=== PATIENT | female | born 1935 | race Two or more races ===

== ENCOUNTER 2019-02-02 20:32 | Emergency (ER) | payer OTHER ==
[~2019-02-02] VITALS: Ht 152.4 cm; Wt 54.4 kg
[~2019-02-02 20:32] MED LIST: BUTA-187; FENO5TAB; HYDR25TA4; HYDR500T13; LEVO50TA7; LEVO75TA6; METO1TAB9; NAPR500T31; RABE20TA5; SIMV-8; TOPI25TA84; [UNRECOGNIZED DRUG - REMARK]
[2019-02-03] MEDS ORDERED: ONDANSETRON HCL 4 MG/2 ML VIAL IV ONE
[2019-02-03] MEDS ORDERED: MORPHINE SULFATE 4 MG/ML SYR/VIAL IV ONE
[2019-02-03 06:03] LABS: Urine Bacteria NONE SEEN /hpf (None Seen); Urine Blood Negative /uL (Negative); Urine Mucus FEW (None Seen); Urine Specific Gravity 1.029 (1.001-1.035); Urine WBC 5 /hpf (0 - 5)
[2019-02-03 06:24] VITALS: BP 141/75
== END 2019-02-03 06:45 | disposition home or self-care (01) ==
LOC: ER 20:35
DX: M54.5 Low back pain (principal); G89.29 Other chronic pain; N39.0 Urinary tract infection, site not specified; E78.5 Hyperlipidemia, unspecified; I10 Essential (primary) hypertension; E07.9 Disorder of thyroid, unspecified; Z79.899 Other long term (current) drug therapy
CPT/HCPCS: 72131; 81001; 96374; 96375; 99284; J2270; J2405

== ENCOUNTER 2022-05-04 21:16 | Emergency (ER) | payer OTHER ==
[~2022-05-04] VITALS: Ht 162.6 cm; Wt 54.4 kg
[~2022-05-04 21:16] MED LIST changes: +RABE20TA19; -RABE20TA5
[2022-05-04] MEDS ORDERED: BACITRACIN INJ 50000 UNIT VIAL TOP ONE (23:00)
[2022-05-04] MEDS ORDERED: BACITRACIN TOP OINT 1 UD PKG TOP ONE ×2 (23:00→23:15)
[2022-05-05 02:06] VITALS: BP 144/78
== END 2022-05-05 02:13 | disposition home or self-care (01) ==
LOC: EDBD 21:16 → ER 21:17
DX: S00.01XA Abrasion of scalp, initial encounter (principal); I10 Essential (primary) hypertension; E78.5 Hyperlipidemia, unspecified; Z79.899 Other long term (current) drug therapy; Z88.8 Allergy status to other drugs, medicaments and biological substances; Y30.XXXA Falling, jumping or pushed from a high place, undetermined intent, initial encounter; Y93.89 Activity, other specified; Y92.098 Other place in other non-institutional residence as the place of occurrence of the external cause; Y99.8 Other external cause status
CPT/HCPCS: 70450; 71250; 72125; 74176

== ENCOUNTER 2024-10-27 16:29 | Emergency (ER) | payer OTHER ==
[~2024-10-27] VITALS: Ht 165.1 cm; Wt 50.0 kg
[~2024-10-27 16:29] MED LIST changes: +NAPR-746; -NAPR500T31; -SIMV-8; +SIMV20TA20
--- NOTE | 2024-10-27 16:44 | ED.PDOC ---
HPI Allergic reaction HPI Comments 89-year-old female brought in by EMS presents with a chief complaint of hives and itching. Patient has been having these symptoms since last night around 17:00. Patient said that it began after her dinner. Denies eating anything new or having new products, clothes, detergents, fragrances, or lotions. Patient states that the itchiness is all over her body. Patient states she has a history of itchy rash concerns. Patient states her primary care provider has not send her to a diamond die maker. Patient denies any airway involvement. Vital signs were stable on arrival. Patient states she took three Benadryl tablets at home. EMS stated they gave one Benadryl tablet in route. Chief Complaint: Rash Time Seen by MD: 16:34 Reviewed Notes: Nurses Notes, Training Developer Notes, Medications, Allergies Allergies: Coded Allergies: Iodine (Verified Allergy, Unknown, 05/04/22) Shellfish Allergy (Verified Allergy, Unknown, 10/27/24) Home Meds Reported Medications [[id number] Mg] (Simvastatin) 20 MG TAB No Conflict Check, MG 04/03/12 [Ntejjlqgqkvwabi29 Mg] (Hydrochlorothiazide) 25 MG TAB No Conflict Check, MG 04/03/12 [Metoprolol Ukg198 Mg] (Metoprolol Succinate Er) 100 MG TAB No Conflict Check, MG 04/03/12 [Ksifej761 Mg] (Tricor) 145 MG TAB No Conflict Check, MG 04/03/12 [Evzbiaab937 Mg] (Naproxen) 500 MG TAB No Conflict Check, MG 04/03/12 [Acetaminophen/H1 Tab] (Acetaminophen/Hydrocodone) 1 TAB TAB No Conflict Check, TAB 04/03/12 [Ajzhwqkuevrtr30 Mcg] (Levothyroxine Sodium) 50 MCG TAB No Conflict Check, MCG 04/03/12 [Kjhpxqpyer40 Mg] (Topiramate) 25 MG TAB No Conflict Check, MG 04/03/12 [Butalbital/Apap/Caf1] (Butalbital/Apap/Caffeine) TAB No Conflict Check 04/03/12 [Ajlhexm61 Mg] (Aciphex) 20 MG TAB No Conflict Check, MG 04/03/12 [Sakcrqflruizb16 Mcg] (Levothyroxine Sodium) 75 MCG TAB No Conflict Check, MCG 04/03/12 [Pt Does Not Know Names Of Meds] No Conflict Check 03/02/12 Information Source: Patient, Emergency Med Personnel Mode of Arrival: EMS Severity: Moderate Rash: Moderate SOB: None Difficulty swallowing: None Pruritus: Mild Timing: Days Duration: Since onset Prehospital treatment: [facility] Location: Chest, Extremities, Face, Neck Exposed to: Unknown Developed: Rash Modyifying Factors: Diphenhydramine Associated Sign and Symptoms: None Past Medical History PAST MEDICAL HISTORY: High Lipids, HTN, Thyroid Past Medical History (Other): History of urticarial rashing Surgical History: Denies all surgeries SUBASSEMBLY ASSEMBLER History: No Pertinent SUBASSEMBLY ASSEMBLER History Family History Family History: Unknown Social History Smoker: Non-Smoker Alcohol: Denies ETOH Use Drugs: Denies Drug Use Lives In: Home Constitutional: denies: chills, diaphoresis, fatigue, fever, malaise, sweats, weakness, others EENTM: denies: blurred vision, double vision, ear bleeding, ear discharge, ear drainage, ear pain, ear ringing, eye pain, eye redness, hearing loss, mouth pain, mouth swelling, nasal discharge, nose bleeding, nose congestion, nose pain, photophobia, tearing, throat pain, throat swelling, voice changes, others Respiratory: denies: cough, hemoptysis, orthopnea, SOB at rest, shortness of breath, SOB with excertion, stridor, wheezing, others Cardiovascular: denies: chest pain, dizzy spells, diaphoresis, Dyspnea on exertion, edema, irregular heart beat, left arm pain, lightheadedness, palpitations, PND, syncope, others Gastrointestinal: denies: abdomen distended, abdominal pain, blood streaked bowels, constipated, diarrhea, dysphagia, difficulty swallowing, hematemesis, melena, nausea, poor appetite, poor fluid intake, rectal bleeding, rectal pain, vomiting, others Genitourinary: denies: abnormal vagina bleeding, burning, dyspareunia, dysuria, flank pain, frequency, hematuria, incontinence, pain, , vagina disch arge, urgency, others Neurological: denies: dizziness, fainting, headache, left sided numbness, left sided weakness, numbness, paresthesia, pre-existing deficit, right sided numbness, right sided weakness, seizure, speech problems, tingling, tremors, weakness, others Musculoskeletal: denies: back pain, gout, joint pain, joint swelling, muscle pain, muscle stiffness, neck pain, others Integumetry: denies: bruises, change in color, change in hair/nails, dryness, laceration, lesions, lumps, rash, wounds, others Allergic/Immunocompromised: reports: Hives, Itching; denies: Difficulty Healing, Frequent Infections, others Hematologic/Lymphatic: denies: anemia, blood clots, easy bleeding, easy bruising, swollen glands, others Endocrine: denies: excessive hunger, excessive sweating, excessive thirst, excessive urination, flushing, intolerance to cold, intolerance to heat, unexplained weight gain, unexplained weight loss, others Psychiatric: denies: anxiety, bipolar disorder, depression, hopeless, panic disorder, schizophrenia, sleepless, suicidal, others All Other Systems: Reviewed and Negative Physical Exam General Appearance: Moderate Distress (Uidx-jh-ldooppov distress due to the pruritus related to her rash concerns.), Normal HEENT: Normal ENT Inspection, Pharynx Normal, TMs Normal Neck: Full Range of Motion, Non-Tender, Normal, Normal Inspection Respiratory: Chest Non-Tender, Lungs Clear, No Accessory Muscle Use, No Respiratory Distress, Normal Breath Sounds Cardiovascular: No Edema, No JVD, No Murmur, No Gallop, Normal Peripheral Pulses, Regular Rate/Rhythm Breast Exam: Deferred Gastrointestinal: No Organomegaly, Non Tender, No Pulsatile Mass, Normal Bowel Sounds, Soft Genitalia: Deferred Pelvic: Deferred Rectal: Deferred Extremities: No calf tenderness, Normal capillary refill, Normal inspection, Normal range of motion, Non-tender, No pedal edema Musculoskeletal : Apperance: Normal Neurologic: Alert, No Motor Deficits, Normal Affect, Normal Mood, No Sensory Deficits Cerebellar Function: NOT DONE Reflexes: NOT DONE Skin: Dry, Normal Color, Rash (Patient displays an urticarial rash to her neck, chest, bilateral upper extremities and extending towards the belly.) Lymphatic: No Adenopathy Was a procedure done? Was a procedure done?: No Differential diagnosis (all) Differential Diagnosis: Anaphylaxis, Angioedema, Contact Dermatitis, Urticaria X-Ray, Labs, Meds, VS Vital Signs Date Time Temp Pulse Resp B/P (MAP) Pulse Ox O2 Delivery O2 Flow Rate FiO2 10/27/24 18:55 97.4 77 14 131/62 (85) 97 97.4 10/27/24 16:46 98.4 83 14 142/82 (102) 94 98.4 10/27/24 16:46 94 14 94 Room Air* 0 21 10/27/24 16:36 98.4 83 14 142/82 (102) 94 98.4 Lab Test 10/27/24 17:11 Range/Units White Blood Count 7.3 4.4-10.8 10^3/uL Red Blood Count 4.85 4.0-5.20 10^6/uL Hemoglobin 15.1 12.2-16.2 g/dL Hematocrit 44.0 36.0-46.0 % Mean Corpuscular Volume 90.6 80.0-100.0 fL Mean Corpuscular Hemoglobin 31.0 28.0-32.0 pg Mean Corpuscular Hemoglobin Concent 34.3 32.0-36.0 g/dL Red Cell Distribution Width 14.7 H 11.8-14.3 % Platelet Count 183 140-450 10^3/uL Mean Platelet Volume 10.1 6.9-10.8 fL Neutrophils (%) (Auto) 83.6 H 37.0-80.0 % Lymphocytes (%) (Auto) 13.0 10.0-50.0 % Monocytes (%) (Auto) 3.0 0.0-12.0 % Eosinophils (%) (Auto) 0.2 0.0-7.0 % Basophils (%) (Auto) 0.2 0.0-2.0 % Neutrophils # (Auto) 6.1 1.6-8.6 10 ^3/uL Lymphocytes # (Auto) 0.9 0.4-5.4 10 ^3/uL Monocytes # (Auto) 0.2 0-1.3 10 ^3/uL Eosinophils # (Auto) 0 0-0.8 10 ^3/uL Basophils # (Auto) 0 0-0.2 10 ^3/uL Nucleated Red Blood Cells 0.1 % Sodium Level 141 136-145 mmol/L Potassium Level 4.0 3.5-5.1 mmol/L Chloride Level 107 98-107 mmol/L Carbon Dioxide Level 23 20-31 mmol/L Anion Gap 11 5-15 Blood Urea Nitrogen 13 9-23 mg/dL Creatinine 0.68 0.550-1.02 mg/dL Glomerular Filtration Rate Calc 84 >90 mL/min BUN/Creatinine Ratio 19.1 10.0-20.0 Serum Glucose 114 H 74-106 mg/dL Lactic Acid Level 1.6 0.4-2.0 mmol/L Calcium Level 10.3 8.7-10.4 mg/dL Total Bilirubin 0.9 0.2-1.0 mg/dL Aspartate Amino Transferase (AST) 19 <34 U/L Alanine Aminotransferase (ALT) < 9 7-40 U/L Alkaline Phosphatase 67 46-116 U/L Total Protein 7.5 5.7-8.2 g/dL Albumin 4.9 H 3.2-4.8 g/dL Current Medications Medications (Trade) Dose Ordered Sig/Christin Route Start Time Stop Time Status Last Admin Dexamethasone Sodium Phosphate (Decadron Injection) 10 mg ONCE ONCE IV 10/27/24 17:00 10/27/24 17:01 DC 10/27/24 16:57 X-Ray, Labs, Meds, VS Comment Advised patient that her rashes indicative of a contact dermatitis. Not sure what is causing the patient have recurrent rashes. Advised that if she is not using reflux at home, this condition may be environmental. Advised patient to follow up with her primary care provider for dermatologic referral and evaluation. Time of 1ST Reevaluation: 19:22 Reevaluation 1ST: Improved Consultation: PCP, Other (Dermatology) Patient Education/Counseling: Diagnosis, Treatment, Need For Follow Up Family Education/Counseling: Diagnosis, Treatment, No Family Present SEPSIS Sepsis Screen Recent Procedure: No On Antibiotic Therapy: No Respiratory Rate >20: No Heart Rate >90: No Temp<36 C (96.8 F) or >38.3 C: No SBP <90 or MAP <65 mmHG: No New Acute Mental Status Change: No Is the patient on CPAP, BIPAP,: No Vital Signs Date Time Temp Pulse Resp B/P (MAP) Pulse Ox O2 Delivery O2 Flow Rate FiO2 10/27/24 18:55 97.4 77 14 131/62 (85) 97 97.4 10/27/24 16:46 98.4 83 14 142/82 (102) 94 98.4 10/27/24 16:46 94 14 94 Room Air* 0 21 10/27/24 16:36 98.4 83 14 142/82 (102) 94 98.4 Laboratory Tests Test 10/27/24 17:11 Lactic Acid Level 1.6 mmol/L (0.4-2.0) White Blood Count 7.3 10^3/uL (4.4-10.8) Medications Medications Dose Ordered Sig/Christin Route Start Time Stop Time Status Last Admin Dose Admin Dexamethasone Sodium Phosphate 10 mg ONCE ONCE IV 10/27/24 17:00 10/27/24 17:01 DC 10/27/24 16:57 Departure 1 Departure Time of Disposition: 19:23 Impression: Primary Impression: Urticarial rash Additional Impression: Contact dermatitis Disposition: HOME / SELF CARE / HOMELESS Condition: Stable Additional Instructions: Advised patient to follow up with primary care provider for discussions related to today's visit and dermatologic referral and evaluation. Discharged With: Self, Friend Critical Care Note Critical Care Time?: No Stability Stability form required: No Heart Score Heart Score: Heart Score Response (Comments) Value History N/A 0 EKG N/A 0 Age N/A 0 Risk Factors N/A 0 Troponin N/A 0 Total 0 I personally scribed for ROSETTA LYNN PAC ([email or web address]) on 10/27/24 at 16:44. Elect ronically submitted by Reza Balderas ([email or web address]). ROSETTA LYNN PAC Oct 27, 2024 16:44
[2024-10-27] MEDS ORDERED: diphenhdrAMINE HCL 25 MG CAP PO ONE (16:45)
[2024-10-27] MEDS ORDERED: DexAMETHasone SOD PHOS 10MG/1ML VIAL INJ IM ONE (16:45)
[2024-10-27 16:46] VITALS: PULSE 94; RESP 14; O2SAT 94
[2024-10-27] MEDS: DexAMETHasone SOD PHOS 10MG/1ML VIAL INJ IV ONE (16:57)
[2024-10-27 17:48] LABS: Basophils # (auto) 0 10 ^3/uL (0-0.2); Basophils % (auto) 0.2 % (0.0-2.0); Eosinophils # (auto) 0 10 ^3/uL (0-0.8); Eosinophils % (auto) 0.2 % (0.0-7.0); Hemoglobin 15.1 g/dL (12.2-16.2); Lymphocytes # (auto) 0.9 10 ^3/uL (0.4-5.4); Mean Corpuscular Hgb Conc. 34.3 g/dL (32.0-36.0); Mean Corpuscular Volume 90.6 fL (80.0-100.0); Monocytes # (auto) 0.2 10 ^3/uL (0-1.3); Neutrophils # (auto) 6.1 10 ^3/uL (1.6-8.6); Neutrophils % (auto) 83.6 % (37.0-80.0); Nucleated Red Blood Cells % 0.1 %; Platelet Count (auto) 183 10^3/uL (140-450); Red Blood Cells 4.85 10^6/uL (4.0-5.20); Red Cell Distribution Width 14.7 % (11.8-14.3); White Blood Cell 7.3 10^3/uL (4.4-10.8)
[2024-10-27 18:09] LABS: Alkaline Phosphatase 67 U/L (46-116); Anion Gap 11 (5-15); Aspartate Aminotransferase 19 U/L (<34); BUN/Creatinine Ratio 19.1 (10.0-20.0); Bilirubin, Total 0.9 mg/dL (0.2-1.0); Blood Urea Nitrogen 13 mg/dL (9-23); Calcium 10.3 mg/dL (8.7-10.4); Carbon Dioxide 23 mmol/L (20-31); Chloride 107 mmol/L (98-107); Sodium 141 mmol/L (136-145); Total Protein 7.5 g/dL (5.7-8.2)
[2024-10-27 18:18] LABS: Alanine Aminotransferase < 9 U/L (7-40); Albumin 4.9 g/dL (3.2-4.8); Glucose 114 mg/dL (74-106)
[2024-10-27 18:55] VITALS: BP 131/62; PULSE 77; RESP 14; TEMP 97.4; O2SAT 97
== END 2024-10-27 19:37 | disposition home or self-care (01) ==
LOC: ER 16:29 → EDBD 16:29 → ER 19:37
DX: L25.9 Unspecified contact dermatitis, unspecified cause (principal); R21 Rash and other nonspecific skin eruption; E78.5 Hyperlipidemia, unspecified; I10 Essential (primary) hypertension; Z88.8 Allergy status to other drugs, medicaments and biological substances; Z79.899 Other long term (current) drug therapy; Z87.898 Personal history of other specified conditions; Z91.018 Allergy to other foods
CPT/HCPCS: 36415; 80053; 83605; 85025; 96374; 99283; J1100